=== PATIENT | male | born 1970 | race Caucasian/White ===

== ENCOUNTER 2017-03-20 17:04 | Emergency (ER) | payer OTHER, BC ==
[2017-03-20] MEDS: HYDROCODONE/APAP (5/325) TAB PO (19:54)
== END 2017-03-20 20:40 | disposition home or self-care (01) ==
LOC: E/R 17:04
DX: M25.511 Pain in right shoulder (principal)
CPT/HCPCS: 73030; 73030-RT; 99283-25